=== PATIENT | female | born 1955 | race Caucasian/White ===

== ENCOUNTER → 2018-07-06 | Outpatient (CLI) | payer BC ==
[~2018-07-06] MED LIST: HYDROCHLOROTHIAZIDE PO; LEVOTHYROXINE PO; LISINOPRIL PO; NAPROXEN PO; SIMVASTATIN40 MG PO; TOPROL XL PO; TYLENOL PO
== END ==
LOC: MAMMO 08:22
PROVIDERS: ATTEND Obstetrics & Gynecology Obstetrics
DX: Z12.31 Encounter for screening mammogram for malignant neoplasm of breast (principal)
CPT/HCPCS: 77067